=== PATIENT | female | born 1990 | race American Indian/Alaskan Native ===

== ENCOUNTER 2018-01-30 04:14 | Emergency (ER) | payer SELFPAY ==
[2018-01-30 04:19] VITALS: BP 123/54
[2018-01-30 04:55] LABS: Bacteria,Urine 1+ /HPF (Negative); Bilirubin,Urine NEG (Negative); Blood,Urine MOD (Negative); Color,Urine Yellow (Yellow); Mucus,Urine 3+ /HPF
[2018-01-30 04:58] LABS: WBC,Urine > 182.0 /HPF (0.0-6.0)
[2018-01-30 05:00] LABS: Basophils # (Auto) 0.1 K/mm3 (0.0-0.1); Eosinophils # (Auto) 0.1 K/mm3 (0.0-0.4); Eosinophils % (Auto) 2.5 % (0.0-4.3); Hematocrit 37.9 % (30.3-42.9); Hemoglobin 12.7 gm/dl (10.1-14.3); Lymphocytes # (Auto) 1.6 K/mm3 (1.2-5.4); Lymphocytes % (Auto) 29.5 % (13.4-35.0); Mean Corpuscular HGB Conc 34 % (30-34); Mean Corpuscular Hemoglobin 31 pg (28-32); Mean Corpuscular Volume 91 fl (79-97); Monocytes # (Auto) 0.5 K/mm3 (0.0-0.8); Monocytes % (Auto) 9.6 % (0.0-7.3); Platelet Count 218 K/mm3 (140-440); Red Blood Count 4.18 M/mm3 (3.65-5.03); Red Cell Distribution Width 13.9 % (13.2-15.2)
[2018-01-30 05:07] LABS: BUN/Creatinine Ratio 14; Blood Urea Nitrogen 10 mg/dL (7-17); Calcium 9.2 mg/dL (8.4-10.2); Hemolysis Index 0
--- NOTE | 2018-01-30 06:44 | Emergency Department Report ---
ED Female HPI - General Chief complaint: Abdominal Pain Stated complaint: UNABLE TO URINATE Time Seen by Provider: 01/30/18 06:38 Source: patient Mode of arrival: Ambulatory Limitations: No Limitations - History of Present Illness Initial comments: 27-year-old -[place] female reports that she is having abdominal pressure for the last 2 days and yesterday she started to have urinary retention. Patient admits to urgency frequency but not able to produce much urine. Patient denies any fever or chills or nausea no vomiting. She has no past medical history currently takes no medications on a daily basis and has no known drug allergies. MD Complaint: dysuria, pelvic pain -: days(s) (2 urinary pressure and urgency) Severity: severe Severity scale (0 -10): 10 Quality: cramping Consistency: intermittent Associated Symptoms: abdominal pain (pelvic pressure and pain). denies: nausea/ vomiting, fever/chills - Related Data Previous Rx's Medication Instructions Recorded Last Taken Type Nitrofurantoin Monohyd/M-Cryst 100 mg PO BID #20 capsule 01/30/18 Unknown Rx [Macrobid 100 mg Capsule] Tamsulosin [Flomax] 0.4 mg PO QDAY #7 cap 01/30/18 Unknown Rx Allergies Allergy/AdvReac Type Severity Reaction Status Date / Time No Known Allergies Allergy Unverified 01/30/18 04:30 ED Review of Systems ROS: Stated complaint: UNABLE TO URINATE Other details as noted in HPI Constitutional: denies: chills, fever Genitourinary: urgency, frequency, other (urinary retention) Musculoskeletal: denies: back pain, joint swelling, arthralgia Skin: denies: rash, lesions Neurological: denies: headache, weakness, paresthesias Psychiatric: denies: anxiety, depression Hematological/Lymphatic: denies: easy bleeding, easy bruising ED Past Medical Hx - Past Medical History Previous Medical History?: No - Surgical History Past Surgical History?: No - Social History Smoking Status: Never Smoker Substance Use Type: None - Medications Home Medications: Home Medications Medication Instructions Recorded Confirmed Last Taken Type Nitrofurantoin Monohyd/M-Cryst 100 mg PO BID #20 capsule 01/30/18 Unknown Rx [Macrobid 100 mg Capsule] Tamsulosin [Flomax] 0.4 mg PO QDAY #7 cap 01/30/18 Unknown Rx ED Physical Exam - General Limitations: No Limitations General appearance: alert, in no apparent distress - ENT ENT exam: Present: mucous membranes moist - Respiratory Respiratory exam: Present: normal lung sounds bilaterally. Absent: respiratory distress - Cardiovascular Cardiovascular Exam: Present: regular rate, normal rhythm. Absent: systolic murmur, diastolic murmur, rubs, gallop - GI/Abdominal GI/Abdominal exam: Present: soft, tenderness (suprapubic). Absent: distended - Back Exam Back exam: Present: normal inspection - Neurological Exam Neurological exam: Present: alert, oriented X3 - Psychiatric Psychiatric exam: Present: normal affect, normal mood - Skin Skin exam: Present: warm, dry, intact, normal color. Absent: rash ED Course Vital Signs 01/30/18 01/30/18 04:11 04:24 Temperature 98.3 F 98.3 F Pulse Rate 81 83 Respiratory 18 18 Rate Blood Pressure 123/54 123/54 O2 Sat by Pulse 100 100 Oximetry ED Medical Decision Making - Lab Data Result diagrams: 01/30/18 04:36 01/30/18 04:36 Critical care attestation.: If time is entered above; I have spent that time in minutes in the direct care of this critically ill patient, excluding procedure time. ED Disposition Clinical Impression: UTI (urinary tract infection) Qualifiers: Urinary tract infection type: acute cystitis Hematuria presence: with hematuria Qualified Code(s): N30.01 - Acute cystitis with hematuria Disposition: - TO HOME OR SELFCARE Is pt being admited?: No Does the pt Need Aspirin: No Condition: Stable Instructions: Abdominal Pain (ED) Additional Instructions: Please complete antibiotics as prescribed. Please take the Flomax for the next 7 days to help with the urinary retention. If her symptoms persist or gets worse please follow-up with your primary care provider. Prescriptions: Nitrofurantoin Monohyd/M-Cryst [Macrobid 100 mg Capsule] 100 mg PO BID #20 capsule Tamsulosin [Flomax] 0.4 mg PO QDAY #7 cap Referrals: KOBE ALAV MD [Other] - 3-5 Days Forms: Work/School Release Form(ED)
== END 2018-01-30 06:50 | disposition home or self-care (01) ==
LOC: ED 04:14
DX: N30.01 Acute cystitis with hematuria (principal)
CPT/HCPCS: 36415; 51702; 80048; 81001; 84703; 85025; 99283